=== PATIENT | male | born 1985 | race Caucasian/White ===

== ENCOUNTER 2019-06-24 10:57 | Emergency (ER) | payer OTHER ==
[~2019-06-24] VITALS: Ht 182.9 cm; Wt 84.0 kg
[2019-06-24] MEDS ORDERED: KETOROLAC 60 MG/2 ML VIAL (J1885) IM ONE (12:45)
--- NOTE | 2019-06-24 13:51 | REP ---
Clinical: Trauma. Fall. Technique: Axial noncontrast images from the skull base to the thoracic inlet with coronal and sagittal re-formations Findings: Normal alignment and lordosis is maintained. Cervical vertebral bodies including transverse processes and spinous processes are intact and there is no evidence for acute fracture / compression injury or subluxation. Spinal canal is patent. Posterior elements are intact. Paravertebral soft tissues are normal. Impression: Age-appropriate cervical spine CT. No evidence for acute trauma/injury. Electronically Signed by Renzo Delaney MD 06/24/2019 01:42 P
--- NOTE | 2019-06-24 15:04 | REP ---
Clinical: Fall with acute thoracic pain. Technique: AP, lateral, and swimmers views. Findings: Alignment and kyphosis is maintained. Vertebral bodies intact. No acute fracture / compression injury or subluxation. No degenerative changes. Paravertebral soft tissues are normal. Impression: Normal thoracic spine series. Electronically Signed by Renzo Delaney MD 06/24/2019 02:55 P
--- NOTE | 2019-06-24 15:05 | REP ---
Clinical: Trauma/fall with back pain . Technique: AP, lateral, bilateral oblique, and coned-down views. Findings: Alignment and lordosis is maintained. The vertebral bodies including transverse process and spinous processes are intact and normal. There is no evidence for acute fracture / compression injury or subluxation. No evidence for spondylolysis or spondylolisthesis. No significant degenerative change is noted. Impression: Normal lumbosacral spine radiograph series. Electronically Signed by Renzo Delaney MD 06/24/2019 02:56 P
[2019-06-24] MEDS ORDERED: KETO10TAB PO (15:19)
[2019-06-24] MEDS ORDERED: NORC1TAB7 PO (15:19)
--- NOTE | 2019-06-24 15:24 | REP ---
Clinical: Trauma. Technique: Frontal view of the chest with multiple views of the right and left hemithorax. Findings: Frontal view of the chest demonstrates no acute cardiopulmonary process. Multiple views of the right and left hemithorax demonstrates no obvious acute rib fracture or pathology. Impression: Normal bilateral rib series Electronically Signed by Renzo Delaney MD 06/24/2019 03:15 P
[2019-06-24 15:30] VITALS: BP 130/78
== END 2019-06-24 15:53 | disposition home or self-care (01) ==
LOC: EDBD 10:57 → M ED 10:57
DX: S20.229A Contusion of unspecified back wall of thorax, initial encounter (principal); W19.XXXA Unspecified fall, initial encounter; Y92.89 Other specified places as the place of occurrence of the external cause; Y93.89 Activity, other specified; Y99.0 Civilian activity done for income or pay
CPT/HCPCS: 71111; 72072; 72110; 72125; 96372; 99284; J1885